=== PATIENT | male | born 1985 | race Caucasian/White ===

== ENCOUNTER 2023-03-19 04:00 | Day surgery (SDC) | payer OTHER ==
[2023-03-19] VITALS (219 sets, daily range): BP systolic 95–145; BP diastolic 48–91
[~2023-03-19] VITALS: Ht 182.9 cm; Wt 69.0 kg
[2023-03-19 08:24] LABS: BASO% 0.3 % (0-3); EOS% 3.7 % (0-8); HEMATOCRIT 40.5 % (39.0-50.0); HEMOGLOBIN 13.3 g/dl (14.0-18.0); IMMATURE GRANULOCYTES 0.1 % (0.0-5.0); LYMPH% 16.3 % (15-41); MEAN CORPUSCULAR HGB 31.5 pG CALC (26.0-32.0); MEAN CORPUSCULAR HGB CONC 32.8 g/dL CAL (32.0-36.0); MONO% 4.9 % (2-13); NEUT# 4.97 thou/uL (1.82-7.42); NEUT% 74.7 % (42-76); RED BLOOD COUNT 4.22 mill/uL (4.70-6.10); RED CELL DISTRI WIDTH 12.5 % (11.5-15.5)
[2023-03-19 08:38] LABS: ALBUMIN 4.6 g/dL (3.2-5.0); ALKALINE PHOSPHATASE 58 u/l (38-126); ANION GAP 14 (6-22 (CALC)); BILIRUBIN, TOTAL 0.2 mg/dL (0.2-1.3); BUN 18 mg/dL (9-20); BUN/CREATININE RATIO 25 (12-20 (CALC)); CARBON DIOXIDE 31 mmol/l (22-30); CHLORIDE 102 mmol/l (95-108); CREATININE 0.7 mg/dL (0.7-1.3); GFR FOR AFR.AMER. > 60 ML/MIN (>=60 (CALC)); GFR OTHER RACES > 60 ML/MIN (>=60 (CALC)); POTASSIUM 4.2 mmol/l (3.5-5.1); SGOT/AST 33 u/l (17-59); SODIUM 142 mmol/l (137-146); TOTAL PROTEIN 7.5 g/dL (6.3-8.2)
[2023-03-19] MEDS ORDERED: VIMPAT200 MG PO (08:58)
[2023-03-19] MEDS ORDERED: METHADONE10 M1 PO (08:59)
[2023-03-19] MEDS ORDERED: CLONIDINE0.1 MG PO (13:46)
[2023-03-19] MEDS ORDERED: NALTREXONE50 MG PO (13:46)
[2023-03-19] MEDS ORDERED: KLONOPIN2 MG PO (13:47)
[2023-03-20 00:49] VITALS: BP 114/66
[2023-03-20 03:46] VITALS: BP 120/64
[2023-03-20 04:54] LABS: BASO% 0.1 % (0-3); HEMATOCRIT 37.8 % (39.0-50.0); HEMOGLOBIN 13.1 g/dl (14.0-18.0); IMMATURE GRANULOCYTES 0.2 % (0.0-5.0); LYMPH% 3.8 % (15-41); MEAN CELL VOLUME 93.1 fL CALC (80.0-100.0); MEAN CORPUSCULAR HGB 32.3 pG CALC (26.0-32.0); MEAN CORPUSCULAR HGB CONC 34.7 g/dL CAL (32.0-36.0); MONO% 2.1 % (2-13); NEUT# 16.76 thou/uL (1.82-7.42); NEUT% 93.8 % (42-76); RED BLOOD COUNT 4.06 mill/uL (4.70-6.10); RED CELL DISTRI WIDTH 12.1 % (11.5-15.5)
[2023-03-20 05:18] LABS: ALBUMIN 4.3 g/dL (3.2-5.0); ALKALINE PHOSPHATASE 66 u/l (38-126); BUN 18 mg/dL (9-20); BUN/CREATININE RATIO 27 (12-20 (CALC)); CHLORIDE 105 mmol/l (95-108); CREATININE 0.7 mg/dL (0.7-1.3); GFR FOR AFR.AMER. > 60 ML/MIN (>=60 (CALC)); GFR OTHER RACES > 60 ML/MIN (>=60 (CALC)); MAGNESIUM 1.6 mg/dL (1.6-2.3); POTASSIUM 3.7 mmol/l (3.5-5.1); SGOT/AST 43 u/l (17-59); SODIUM 141 mmol/l (137-146)
[2023-03-20 05:19] LABS: ANION GAP 16 (6-22 (CALC)); BILIRUBIN, TOTAL 0.7 mg/dL (0.2-1.3); CARBON DIOXIDE 24 mmol/l (22-30)
[2023-03-20 07:01] VITALS: BP 111/64
[2023-03-20 19:08] VITALS: BP 118/69
[2023-03-21 04:42] VITALS: BP 112/69
[2023-03-21 04:55] LABS: HEMATOCRIT 35.1 % (39.0-50.0); HEMOGLOBIN 12.1 g/dl (14.0-18.0); MEAN CELL VOLUME 94.1 fL CALC (80.0-100.0); MEAN CORPUSCULAR HGB 32.4 pG CALC (26.0-32.0); MEAN CORPUSCULAR HGB CONC 34.5 g/dL CAL (32.0-36.0); RED BLOOD COUNT 3.73 mill/uL (4.70-6.10); RED CELL DISTRI WIDTH 12.7 % (11.5-15.5)
[2023-03-21 05:15] LABS: ALKALINE PHOSPHATASE 55 u/l (38-126); BILIRUBIN, TOTAL 0.5 mg/dL (0.2-1.3); BUN 18 mg/dL (9-20); BUN/CREATININE RATIO 28 (12-20 (CALC)); CARBON DIOXIDE 25 mmol/l (22-30); CHLORIDE 107 mmol/l (95-108); CREATININE 0.6 mg/dL (0.7-1.3); GFR FOR AFR.AMER. > 60 ML/MIN (>=60 (CALC)); GFR OTHER RACES > 60 ML/MIN (>=60 (CALC)); MAGNESIUM 1.7 mg/dL (1.6-2.3); SGOT/AST 34 u/l (17-59); SODIUM 141 mmol/l (137-146); TOTAL PROTEIN 6.5 g/dL (6.3-8.2)
[2023-03-21 05:57] LABS: ANION GAP 12 (6-22 (CALC)); POTASSIUM 3.4 mmol/l (3.5-5.1)
== END 2023-03-21 14:49 | disposition home or self-care (01) | DRG 897 ==
LOC: ANR 04:00 → MS2 04:00 → ANR 09:00 → MS2 16:46 → ANR 03-21 14:49
PROVIDERS: ATTEND Anesthesiology
DX: F11.20 Opioid dependence, uncomplicated (principal)
CPT/HCPCS: J2354; J3475